=== PATIENT | male | born 1985 | race Two or more races ===

== ENCOUNTER 2020-10-13 15:57 | Emergency (ER) | payer OTHER ==
[~2020-10-13] VITALS: Ht 172.7 cm; Wt 158.8 kg
[2020-10-13 16:01] VITALS: BP 134/83
[2020-10-13] MEDS ORDERED: IBUPROFEN 800 MG TAB PO ONE (17:15)
[2020-10-13] MEDS ORDERED: cefTRIAXone SOD 1,000 MG VL IM ONE (17:15)
== END 2020-10-13 17:44 | disposition home or self-care (01) ==
LOC: ER 15:58
DX: K04.7 Periapical abscess without sinus (principal); J45.909 Unspecified asthma, uncomplicated; I10 Essential (primary) hypertension; E66.01 Morbid (severe) obesity due to excess calories; Z68.43 Body mass index [BMI] 50.0-59.9, adult
CPT/HCPCS: 96372; 99283; J0696